=== PATIENT | female | born 1980 | race Caucasian/White ===

== ENCOUNTER 2017-02-03 21:02 | Emergency (ER) | payer OTHER ==
[~2017-02-03] VITALS: Ht 167.6 cm; Wt 59.0 kg
[~2017-02-03 21:02] MED LIST: BUTALB-APAP-CA1 EACH PO; CIPRO500 MG PO; HYDROMORPHONE HC2 MG PO; IBUPROFEN600 MG PO; K-DUR20 MEQ PO; NAPROSYN500 MG PO; ONDANSETRON HCL4 MG PO; PERCOCET 5/31 TABLET PO; POLYETHYLENE GL17 GM PO
[2017-02-03 21:21] LABS: POINT-OF-CARE METER ID UU13113702
[2017-02-03 22:43] LABS: BASOPHIL COUNT 0.1 K/uL (0-0.1); EOSINOPHIL (%) 1.5 % (0-5); EOSINOPHIL COUNT 0.1 K/uL (0-0.3); HEMATOCRIT 43.1 % (36.0-46.0); IMMATURE GRANULOCYTE (%) 0.2 % (0.0-0.7); INSTRUMENT ABS NEUTROPHIL CT 5.2 K/uL; LYMPHOCYTE COUNT 1.8 K/uL (1.0-2.8); MCH 31.5 PG (29.0-34.0); MCHC 35.3 G/DL (30.0-36.0); MCV 89.4 FL (83-99); MONOCYTE COUNT 0.7 K/uL (0-0.8); NEUTROPHIL (%) 65.3 % (45-76); NEUTROPHIL COUNT 5.2 K/uL (1.8-6.4); PLATELET COUNT 280 K/uL (156-360); RBC DIS.WIDTH-CV 11.5 % (11.8-14.6); RBC DIS.WIDTH-SD 37.3 % (39-53); RED BLOOD COUNT 4.82 M/uL (3.80-5.20)
[2017-02-03 22:59] LABS: CHLORIDE 108 mEq/L (99-109); POTASSIUM 3.5 mEq/L (3.7-5.4); SODIUM 137 mEq/L (136-147)
[2017-02-03 23:01] LABS: GLUCOSE 77 mg/dL (70-99)
[2017-02-03 23:02] LABS: ANION GAP 11 MEQ/L (2-14)
[2017-02-03 23:04] LABS: SERUM ETHYL ALCOHOL < 10 mg/dL
[2017-02-03 23:05] LABS: GFR ESTIMATE (CALCULATED) > 59 mL/min/
[2017-02-03 23:06] LABS: UREA NITROGEN (BUN) 17 mg/dL (9-23)
[2017-02-04 00:01] VITALS: BP 134/100
[2017-02-04 00:04] LABS: POINT-OF-CARE METER ID UU13113702
== END 2017-02-04 00:01 | disposition home or self-care (01) ==
LOC: EME → EDBD 21:02 → EME 21:02
PROVIDERS: Emergency Medicine
DX: F43.0 Acute stress reaction (principal); E16.1 Other hypoglycemia; Z85.820 Personal history of malignant melanoma of skin; F17.200 Nicotine dependence, unspecified, uncomplicated
CPT/HCPCS: 80048; 82948; 85025; 90839; 99281; 99284; G0480

== ENCOUNTER 2017-04-08 15:13 | Emergency (ER) | payer OTHER ==
[~2017-04-08] VITALS: Ht 167.6 cm; Wt 62.0 kg
[2017-04-08 18:04] LABS: HEMATOCRIT 47.1 % (36.0-46.0); MCH 31.2 PG (29.0-34.0); MCHC 33.8 G/DL (30.0-36.0); MCV 92.5 FL (83-99); MEAN PLAT.VOLUME 9.8 uM^3 (9.5-12.4); PLATELET COUNT 320 K/uL (156-360); RBC DIS.WIDTH-CV 12.5 % (11.8-14.6); RBC DIS.WIDTH-SD 43.2 % (39-53); RED BLOOD COUNT 5.09 M/uL (3.80-5.20); WHITE BLOOD COUNT 10.6 K/uL (4.1-10.2)
[2017-04-08 18:15] LABS: CHLORIDE 103 mEq/L (99-109); POTASSIUM 3.8 mEq/L (3.7-5.4); SODIUM 139 mEq/L (136-147)
[2017-04-08 18:18] LABS: GLUCOSE 82 mg/dL (70-99)
[2017-04-08 18:19] LABS: ANION GAP 11 MEQ/L (2-14)
[2017-04-08 18:20] LABS: TOTAL BILIRUBIN 0.3 mg/dL (0.0-1.0)
[2017-04-08 18:21] LABS: ALKALINE PHOSPHATASE 73 IU/L (3-129); GFR ESTIMATE (CALCULATED) > 59 mL/min/
[2017-04-08 18:22] LABS: UREA NITROGEN (BUN) 9 mg/dL (9-23)
[2017-04-08 18:31] LABS: QUANTITATIVE HCG < 4.0 MIU/ML
[2017-04-08] MEDS ORDERED: LIDOCAINE700 MG TD (21:19)
[2017-04-08] MEDS ORDERED: PREDNISONE20 MG PO (21:19)
[2017-04-08] MEDS ORDERED: VALIUM5 MG PO (21:20)
[2017-04-08 21:36] VITALS: BP 156/98
== END 2017-04-08 21:37 | disposition home or self-care (01) ==
LOC: EME 15:13
PROVIDERS: Nurse Practitioner Family
DX: M51.26 Other intervertebral disc displacement, lumbar region (principal); M54.42 Lumbago with sciatica, left side; Z88.1 Allergy status to other antibiotic agents
CPT/HCPCS: 72132; 80053; 84702; 85027; 99281; 99284; J1885; J2270; J3360; J7030